=== PATIENT | female | born 1955 | race American Indian/Alaskan Native ===

== ENCOUNTER 2016-12-12 05:32 | Emergency (ER) | payer SELFPAY ==
[2016-12-12 05:39] VITALS: BP 179/90
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
[2016-12-12] MEDS ORDERED: ZITHROMAX PO ONE (07:44)
[2016-12-12] MEDS ORDERED: ROCEPHIN IM ONE (07:44)
[2016-12-12] MEDS ORDERED: XYLOCAINE 1% MPF 5 mL INFILTRATI ONE (07:44)
== END 2016-12-12 08:41 | disposition home or self-care (01) ==
LOC: ED 05:32
DX: N75.0 Cyst of Bartholin's gland (principal); I10 Essential (primary) hypertension; F17.210 Nicotine dependence, cigarettes, uncomplicated; Z88.1 Allergy status to other antibiotic agents
CPT/HCPCS: 56405; 87210; 87591; 96372; 99283; J0696

== ENCOUNTER 2019-07-04 13:14 | Emergency (ER) | payer OTHER ==
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
[2019-07-04 15:16] VITALS: BP 130/55
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
== END 2019-07-04 16:16 | disposition home or self-care (01) ==
LOC: ED 13:14
DX: S43.492A Other sprain of left shoulder joint, initial encounter (principal); I10 Essential (primary) hypertension; Z79.899 Other long term (current) drug therapy; Z88.1 Allergy status to other antibiotic agents; V89.2XXA Person injured in unspecified motor-vehicle accident, traffic, initial encounter; Y93.89 Activity, other specified; Y92.410 Unspecified street and highway as the place of occurrence of the external cause; Y99.8 Other external cause status